=== PATIENT | female | born 1955 | race Caucasian/White ===

== ENCOUNTER 2022-05-31 11:34 | Observation (INO) | payer MEDICARE ==
[2022-05-31] VITALS (18 sets, daily range): BP systolic 109–136; BP diastolic 55–71
[~2022-05-31] VITALS: Ht 170.2 cm; Wt 64.6 kg
[2022-05-31 12:03] LABS: BASO% 0.3 % (0-3); EOS% 0.5 % (0-8); HEMATOCRIT 37.8 % (37.0-47.0); HEMOGLOBIN 12.3 g/dl (12.0-16.0); IMMATURE GRANULOCYTES 0.1 % (0.0-5.0); LYMPH% 30.7 % (15-41); MEAN CELL VOLUME 90.9 fL CALC (80.0-100.0); MEAN CORPUSCULAR HGB 29.6 pG CALC (26.0-32.0); MEAN CORPUSCULAR HGB CONC 32.5 g/dL CAL (32.0-36.0); MONO% 7.6 % (2-13); NEUT# 4.65 thou/uL (2.00-7.15); NEUT% 60.8 % (42-76); RED BLOOD COUNT 4.16 mill/uL (4.20-5.60); RED CELL DISTRI WIDTH 13.2 % (11.5-15.5)
[2022-05-31 12:16] LABS: ALKALINE PHOSPHATASE 76 u/l (38-126); ANION GAP 7 (6-22 (CALC)); BILIRUBIN, TOTAL 0.7 mg/dL (0.02-1.3); BUN 15 mg/dL (8-23); BUN/CREATININE RATIO 16 (12-20 (CALC)); CARBON DIOXIDE 29 mmol/l (22-30); CHLORIDE 106 mmol/l (95-108); GFR FOR AFR.AMER. > 60 ML/MIN (>=60 (CALC)); GFR OTHER RACES 55 ML/MIN (>=60 (CALC)); POTASSIUM 4.2 mmol/l (3.5-5.1); SGOT/AST 27 u/l (9-36); SODIUM 138 mmol/l (137-146); TOTAL PROTEIN 6.7 g/dL (6.3-8.2)
[2022-05-31 13:01] LABS: URINE BILIRUBIN - DIPSTICK NEGATIVE (NEGATIVE); URINE BLOOD DIPSTICK NEGATIVE (NEGATIVE); URINE COLOR YELLOW; URINE GLUCOSE - DIPSTICK NEGATIVE (NEGATIVE); URINE KETONE NEGATIVE (NEGATIVE); URINE PROTEIN - DIPSTICK TRACE mg/dL (NEG-TRACE); URINE UROBILINOGEN - DIPSTICK 0.2 E.U./dL (0.2)
[2022-05-31 13:02] LABS: URINE LEUK ESTERASE SMALL (NEGATIVE); URINE NITRITE - DIPSTICK NEGATIVE (Negative)
[2022-05-31 13:05] LABS: MAGNESIUM 2.3 mg/dL (1.6-2.3)
[2022-05-31 13:12] LABS: URINE BACTERIA FEW hpf; URINE SQUAMOUS EPITHELIAL CELL FEW EPI/hpf (0-FEW); URINE TRANSITIONAL EPI. CELLS FEW hpf
[2022-05-31] MEDS ORDERED: AMLODIPINE BESY10 MG PO (16:20)
[2022-05-31] MEDS ORDERED: ROSUVASTATIN CAL5 MG (16:21)
[2022-05-31] MEDS ORDERED: AMLODIPINE BESYL5 MG PO (16:22)
[2022-05-31] MEDS ORDERED: LEVOTHYROXIN75 MC1 PO (16:23)
[2022-05-31] MEDS ORDERED: LEVOTHYROXIN75 MCG PO (16:25)
[2022-05-31] MEDS ORDERED: BENZONATATE200 MG PO (16:25)
[2022-05-31] MEDS ORDERED: ZPAK PO (16:26)
[2022-05-31] MEDS ORDERED: VITA D-1000 PO (16:28)
[2022-05-31] MEDS ORDERED: B-122000 MCG PO (16:28)
[2022-05-31] MEDS ORDERED: ASPIRIN 81 LOW81 MG PO (16:30)
[2022-06-01 04:44] VITALS: BP 132/65
[2022-06-01 08:12] VITALS: BP 124/70
[2022-06-01 11:14] VITALS: BP 121/55
== END 2022-06-01 14:44 | disposition home or self-care (01) ==
LOC: ED 11:34 → MS2 13:48
PROVIDERS: Nurse Practitioner; ADMIT Internal Medicine; ATTEND Internal Medicine
DX: R55 Syncope and collapse (principal); I10 Essential (primary) hypertension; E78.5 Hyperlipidemia, unspecified; E03.9 Hypothyroidism, unspecified
CPT/HCPCS: J1650